=== PATIENT | female | born 1940 | race Caucasian/White ===

== ENCOUNTER → 2020-11-26 16:02 | Outpatient (CLI) | payer MEDICARE, BC, SELFPAY ==
--- NOTE | ~2020-11-26 | XR_ITS ---
EXAMINATION: XR chest 2V DATE: 11/26/2020 16:25 INDICATION: Shortness of breath. TECHNIQUE: Frontal and lateral views of the chest were obtained. COMPARISON: Chest 2 views 03/19/2015 FINDINGS: The chest demonstrates clear lungs without pneumonia, pleural effusion, or pneumothorax. Th e heart size is normal. IMPRESSION: 1. No acute cardiopulmonary disease. Reviewed, dictated and finalized at location A.
== END ==
PROVIDERS: PCP Family Medicine; Visit Provider Physician Assistant
DX: R06.02 Shortness of breath (principal)
CPT/HCPCS: 71046

== ENCOUNTER 2021-02-13 16:00 | Outpatient (CLI) | payer MEDICARE, BC, SELFPAY ==
--- NOTE | 2021-02-13 16:13 | ECG_ITS ---
Measurements Intervals [place] Rate: 68 P: 87 [place]: 152 QRS: 93 QRSD: 124 T: -27 QT: 441 QTc: 472 Interpretive Statements SINUS RHYTHM RIGHT AXIS DEVIATION RIGHT BUNDLE BRANCH BLOCK CANNOT RULE OUT SEPTAL INFARCT, AGE INDETERMINATE BASELINE WANDER- I, II, AVR, V5-V6 ABNORMAL ECG Electronically Signed On 02-13-2021 19:43:13 CDT by Félix Perez D.O.
== END 2021-02-13 16:01 | disposition home or self-care (01) ==
PROVIDERS: PCP Family Medicine; Visit Provider Family Medicine
DX: I25.10 Atherosclerotic heart disease of native coronary artery without angina pectoris (principal); I48.0 Paroxysmal atrial fibrillation; I45.10 Unspecified right bundle-branch block
CPT/HCPCS: 93005

== ENCOUNTER 2025-06-07 16:05 | Emergency (ER) | payer MEDICARE, BC, SELFPAY ==
--- OUTSIDE RECORDS SUMMARY | 2009-10-01 07:45 | XMS_ITS | Continuity of Care Document ---
Author Organization [facility] Address [address] [place] [address] Phone Care Team Providers Care Occup Therapist Name Role Phone Deejay Weldon Unavailable Unavailable Procedures Procedure Date Office/outpatient Visit, Est Dilated Retinal Exam W Interpretation Nd Office/outpatient Visit, Est Optic Nerve Head Eval Dilated Retinal Exam W Interpretation Nd No Script Fundus Photography W/ Report Visual Field Examination-Professional Se Visual Field Examination(s) Eye Exam Established Pt Refraction Refraction Post-op Follow-up Visit Post-op Follow-up Visit Remove Cataract, Insert Lens PreSurg Dilated Fundus Eval Performed Au PreSurg Measurements/IOL Calc Performed And Docum Post-op Follow-up Visit Echo Exam Of Eye-Professional 7 Post-op Follow-up Visit Remove Cataract, Insert Lens PreSurg Dilated Fundus Eval Performed Ju PreSurg Measurements/IOL Calc Performed And Docum Eye Exam Established Pt Echo Exam Of Eye Advance Directives Directive Yes / No Effective Date File Name No Information Encounters Encounter Description Practice Location Reason(s) For Visit Diagnoses Date Provider Providers Copied on Encounter Office/outpat ient Visit, Est [facility], [address], [place], [id number], tel:[phone] [facility] No Information Mar-0 8-201 0 Doisy Edward. [facility] [address], [place], [place], [facility], . tel:[phone] Office/outpat ient Visit, Est [facility], [address] [place] [address] [address], [place], [place], [id number], tel:[phone] [facility] No Information Mar-1 6-200 9 Krishnasamy Silas. [address] [place], [place] [address]ate [address], [place], [facility], [place]. tel:[phone] Referring Provider: Silas cordova, [address] [place], [place] [address]ate [address], [place], [facility]. tel:[phone] [facility], [address] [place] [address] [address], [place], [place], [address], tel:[phone] [facility] No Information Sep-0 2-200 8 Krishnasamy Silas. [address] [place], [place] [address]ate [place], [place], [facility], [place]. tel:[phone] Referring Provider: Silas cordova, [address] [place], [place] [address]ate [address], [place], [facility]. tel:[phone] [facility], [address] [place] [address] [address], [place], [place], [address], tel:[phone] [facility] No Information Aug-2 9-200 8 Krishnasamy Silas. [address] [place], [place] [address]ate [facility] [address], [place], [facility], [place]. tel:[phone] Referring Provider: Silas cordova, [address] [place], [place] [address]ate [address], [place], [facility]. tel:[phone] [facility], [address] [place] [address] [address], [place], [place], [address], [place] tel:[phone] [facility] No Information 2-200 8 Rachael Rosen. [facility] [address], [place], [facility], [place]. tel:[phone] [facility], [address], [place], [place], [address], [place] tel:[phone] [facility] No Information 3 1-200 7 Shiraz Villalba. [facility] , [address], [place], [facility], [place]. tel:[phone] Referring Provider: Deepak Grayson, [facility] [address], [place], [facility]. tel:[phone] [facility], [address] [place] [address] [address], [place], [place], [address], [place] tel:[phone] [facility] No Information 1 5-200 7 Dobson LUDMILA Sotelo. [facility] , [address], [place], [facility], [place]. tel:[phone] Referring Provider: Deejay Grayson, [facility] [address], [place], [facility]. tel:[phone] [facility], [address], [place], [place], [address], [place] tel:[phone] [facility] No Information 1 4-200 7 Shiraz Villalba. [facility] [address], [place], [facility], [place]. tel:[phone] [facility], [address], [place], [place], [address], [place] tel:[phone] [facility] No Information 0 6-200 7 Shiraz Villalba. [facility] [address], [place], [facility], . tel:[phone] Referring Provider: Deejay Grayson [facility] [address]oon [address], [place], [facility]. tel:[phone] [facility], [address] [place] [address] [address], [place], [place], [address], tel:[phone] [facility] No Information 0200 7 Shiraz Villalba. [address] [place], [place] [address]ate Yoon Braxton, [address], [place], [facility], [place]. tel:[phone] [facility], [address] [place] [address] [address], [place], [place], [address], tel:[phone] [facility] No Information 9200 7 Shiraz Villalba. [address] [place] [address] [address], [address], [place], [facility], . tel:[phone] [facility], [address] [place] [address] [address], [place], [place], [address], [place] tel:[phone] [facility] [place] No Information 1 7 Shiraz Villalba. [address] [place] [address] [address], [address], [place], [facility], . tel:[phone] Referring Provider: Deejay Grayson [facility] [address]oon [address], [place], [facility]. tel:[phone] Family History Family Member Type Diagnosis Age At Onset No Information Payers Payer name Insurance type Covered republican ID Authoriza tion(s) Medicare RR CI [id number] [facility] 09 [id number] Social History Type Description Quantity Date Captured Comments Sex Female Smoking Status No Information Chief Complaint And Reason For Visit No Information Reason For Referral Reason For Referral No Information History Of Present Illness Encounter Date Complaint History Of Prese nt Illness No Information Functional Status Date Functional Assessmen t No Information Instructions Date Instruction Additional Infor mation No Information Assessments Type Assessment Date No Information Patient Care Teams Name Effective Dates (start - stop) Status Members No Information
--- OUTSIDE RECORDS SUMMARY | 2009-10-01 07:45 | XMS_ITS | Continuity of Care Document ---
Author Organization [facility] Address [address] [place] [address] Phone Care Team Providers Care Storage Solutions Architect Name Role Phone Deejay Weldon Unavailable Unavailable Procedures Procedure Date Office/outpatient Visit, Est Dilated Retinal Exam W Interpretation Or Office/outpatient Visit, Est Optic Nerve Head Eval Dilated Retinal Exam W Interpretation Or No Script Fundus Photography W/ Report Visual [...] Copied on Encounter Office/outpat ient Visit, Est [facility], [address], [place], [address], tel:[phone] [facility] No Information Mar-0 8-201 [address] [facility] [address], [address], [place], [place], [facility], . tel:[phone] Office/outpat ient Visit, Est [facility], [address] [place] [address] [address], [place], [place], [address], tel:[phone] [facility] No Information Mar-1 6-200 9 Krishnasamy Silas. [address] [place], [place] [address]ate [address], [place], [facility], [place]. tel:[phone] Referring Provider: Silas cordova, [address] [place], [place] [address]ate [address], [place], [facility]. tel:[phone] [facility], [address] [place] [address] [address], [place], [place], [address], tel:[phone] [facility] No Information Sep-0 2-200 8 Krishnasamy Silas. [address] [place], [place] [address]ate [address], [place], [facility], [place]. tel:[phone] Referring Provider: Silas cordova, [address] [place], [place] [address] [address], [place], [facility]. tel:[phone] [facility], [address] [place] [address] [address], [place], [place], [address], tel:[phone] [facility] No Information Aug-2 9-200 8 Krishnasamy Silas. [address] [place], [place] [address]ate [facility] [address], [place], [facility], [place]. tel:[phone] Referring Provider: Silas cordova, [address] [place], [place] [address] [address], [place], [facility]. tel:[phone] [facility], [address] [place] [address] [address], [place], [place], [address], [place] tel:[phone] [facility] No Information 2-200 [address] [facility] [address], [place], [facility], [place]. tel:[phone] [facility], [address], [place], [place], [address], [place] tel:[phone] [facility] No Information 3 1-200 [address]az [address]al[address] [facility] , [address], [place], [facility], [place]. tel:[phone] Referring Provider: Deepak Grayson, [facility] [address], [place], [facility]. tel:[phone] [facility], [address] [place] [address] [address], [place], [place], [address], [place] tel:[phone] [facility] No Information 1 5-200 7 Dobson LUDMILA Sotelo. [facility] , [address], [place], [facility], [place]. tel:[phone] Referring Provider: Deejay Grayson, [facility] [address], [place], [facility]. tel:[phone] [facility], [address], [place], [place], [address], [place] tel:[phone] [facility] No Information 1 4-200 [address] Shiraz [address]al[address]. [facility] [address], [place], [facility], [place]. tel:[phone] [facility], [address], [place], [place], [address], [place] tel:[phone] [facility] No Information 0 6-200 [address] Shir[address] Villalba. [facility] [address], [address], [place], [facility], . tel:[phone] Referring Provider: Deejay Grayson [facility] Center[facility] [address], [place], [facility]. tel:[phone] [facility], [address] [place] [address] [address], [place], [place], [address], tel:[phone] [facility] No Information 0200 7 Shiraz Villalba. [address] [place], [place] [address] Yoon Braxton, [address], [place], [facility], [place]. tel:[phone] [facility], [address] [place] [address] [address], [place], [place], [address], tel:[phone] [facility] No Information 9200 7 Shiraz Villalba. [address] [place] [address] [address], [address], [place], [facility], . tel:[phone] [facility], [address] [place] [address] [address], [place], [place], [address], [place] tel:[phone] [facility] No Information 1 7 Shiraz Villalba. [address] [place] [address] [address], [address], [place], [facility], . tel:[phone] Referring Provider: Deejay Grayson [facility] Center[facility] [address], [place], [facility]. tel:[phone] Family History Family Member Type Diagnosis Age At Onset No Information Payers Payer name Insurance type Covered alliance party ID Authoriza tion(s) Medicare RR CI [id number] [facility] 09 [id number] Social History Type Description Quantity Date Captured [...]
[2025-06-07] VITALS (25 sets, daily range): BP systolic 108–161; BP diastolic 71–137; PULSE 72–133; RESP 14–36; TEMP 36.4; O2SAT 88–99
--- NOTE | ~2025-06-07 | XR_ITS ---
EXAM/PROCEDURE: XR chest 1V portable HISTORY: SOB. Rapid heart rate COMPARISON: 2020 TECHNIQUE: AP view(s) of the chest. FINDINGS: LUNGS: There is pulmonary vascular congestion. PLEURAL SPACES: Clear. No evidence of fluid or pneumothorax. HEART/ MEDIASTINUM: Enlarged SOFT TISSUES: No significant findings. BONES: No acute osseous abnormality. IMPRESSION: Cardiomegaly and pulmonary vascular congestion Reviewed, dictated and finalized at location A. RVISOR SAMPLE
--- NOTE | ~2025-06-07 | CT_ITS ---
CTA chest PE abdomen pel HISTORY:hypoxia, sob, tachycardia . COMPARISON: None. TECHNIQUE: Following the noncontrasted general maintenance engineer, axial images of the thorax were obtained following infusion of 100 cc of Isovue 370. Post-processing on an independent workstation was performed to reconstruct MIP images for evaluation of the thoracic vasculature. FINDINGS: Acute pulmonary infiltrate in the main pulmonary arteries bilaterally extending into the segmental branches. There is right heart strain noted. The lung parenchyma is clear. No pleural effusion or pneumothorax is noted. There is no axillary, mediastinal or hilar adenopathy. Limited evaluation of the upper abdomen demonstrates no gross abnormalities. Review of bone windows demonstrates no osteoblastic or lytic lesions. IMPRESSION: Large pulmonary emboli in the main pulmonary arteries bilaterally extending into the segmental branches. There are right heart strain noted. No acute lung findings. CTA chest PE abdomen pel INDICATION:hypoxia, sob, tachycardia . COMPARISON: None. TECHNIQUE: Axial images of the abdomen and pelvis were obtained following infusion of 100 mL Isovue 370. Dose optimization technique was utilized. FINDINGS: The lung bases are clear. The liver parenchyma is unremarkable. No intrahepatic mass or ductal dilatation is evident. Gallbladder surgically absent. The pancreas and spleen are normal in appearance. The adrenal glands are symmetric in size. The kidneys demonstrate symmetric uptake and excretion of contrast. No cystic mass is evident. There is no solid mass. There is no hydronephrosis. Evaluation of the stomach and bowel loops are limited due to lack of oral contrast. There are no bowel obstruction or acute appendicitis. The bladder and rectum are normal. No free intraperitoneal fluid or air is evident. There is no significant retroperitoneal lymphadenopathy. The aorta, visceral vessels and renal arteries demonstrate normal caliber and patency. The lower thoracic and lumbar vertebrae are in normal alignment. IMPRESSION: No acute abnormality is noted in the abdomen and pelvis. All CT scans at this facility are performed using low dose modulation techniques as appropriate to perform exam including the following: automated exposure control; use of iterative reconstruction technique; adjustment of the mA and/or kV according to patient size (this includes techniques or standardized protocols for targeted exams where dose is matched to indication/reason for exam). Reviewed, dictated and finalized at location S. UNICATIONS PROFESSOR IMPRESSION: Large pulmonary emboli in the main pulmonary arteries bilaterally extending int o the segmental branches. There are right heart strain noted. No acute lung findings. CTA chest PE abdomen pel INDICATION:hypoxia, sob, tachycardia . COMPARISON: None. TECHNIQUE: Axial images of the abdomen and pelvis were obtained following infu marcia of 100 mL Isovue 370. Dose optimization technique was utilized. FINDINGS: The lung bases are clear. The liver parenchyma is unremarkable. No intrahepatic mass or ductal dilatation is evident. Gallbladder surgically absent. The pancreas and spleen are normal in appearance. The adrenal glands are symmetric in size. The kidneys demonstrate symmetric uptake and excretion of contrast. No cystic m ass is evident. There is no solid mass. There is no hydronephrosis. Evaluation of the stomach and bowel loops are limited due to lack of oral contr ast. There are no bowel obstruction or acute appendicitis. The bladder and rectum are normal. No free intraperitoneal fluid or air is evid ent. There is no significant retroperitoneal lymphadenopathy. The aorta, visceral vessels and renal arteries demonstrate normal caliber and p atency. The lower thoracic and lumbar vertebrae are in normal alignment. IMPRESSION: No acute abnormality is noted in the abdomen and pelvis. All CT scans at this facility are performed using low dose modulation techniqu es as appropriate to perform exam including the following: automated exposure c ontrol; use of iterative reconstruction technique; adjustment of the mA and/or kV according to patient size (this includes techniques or standardized protocol s for targeted exams where dose is matched to indication/reason for exam).
--- OUTSIDE RECORDS SUMMARY | 2025-06-07 16:23 | XMS_ITS | Encounter Summary ---
Author Organization [facility] Address [address] [place] [address] Care Team Providers Care Combiner Operator Name Role Phone Wilma Dockery MD Primary Care Provider [phone] Encounter Details Date Type Department Care Team ([facility] Contact Info) Description 03/26/2017 Orders Only [facility] Health Information Management [address] [place] [address] Scanning, Provider Social History Tobacco Use Types Packs/Day Years Used Date Smoking Tobacco: Former Smokeless Tobacco: Never Alcohol Use Standard Drinks/Week Comments No 0 (1 standard drink = 0.6 oz pur e alcohol) Comments Unknown Sex and Gender Information Value Date Recorded Sex Assigned at Not on file Legal Sex 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 Gender Identity Not on file Sexual Orientation Not on file documented as of this encounter Plan of Treatment Not on file documented as of this encounter Procedures Procedure Name Priority Date/Time Associated Diagnosis Comments SCAN - RADIOLOGY/IMAGING 03/26/2017 documented in this encounter Results * SCAN - RADIOLOGY/IMAGING (03/26/2017) Anatomical Region Laterality Modality Other us Provider Scanning Final Result documented in this encounter Visit Diagnoses Not on filedocumented in this encounter Care Teams Combiner Operator Relationship Specialty Start Date End Date Wilma Dockery MD PCP - General 10/24/16 documented as of this encounter
--- OUTSIDE RECORDS SUMMARY | 2025-06-07 16:23 | XMS_ITS | Clinical Summary ---
Author Organization [facility] [address] Address [address] [place] [address] Care Team Providers Care Dredge Captain Name Role Phone Wilma Dockery MD Primary Care Provider [phone] Allergies No known active allergies Medications metFORMIN (GLUCOPHAGE) 500 mg tablet take 1 tablet (500MG) by oral route 2 times every day with morning and evening meals 0 10/04/2012 Active simvastatin (ZOCOR) 20 mg tablet take 1 tablet by oral route every day at bedtime 0 0 05/07/2015 Active lisinopril (PRINIVIL,ZESTRI L) 40 mg tablet take 1 tablet by oral route every day 0 0 05/07/2015 Active cholecalciferol (VITAMIN D-3) 25 mcg (1,000 unit) tablet Take 1 tablet (1,000 Units total) by mouth daily Active brimonidine-rocio loL (COMBIGAN) 0.2-0.5 % ophthalmic solution 1 drop 2 (two) times a day 05/15/2023 Active latanoprost (XALATAN) 0.005 % ophthalmic solution 05/29/2023 Active Xarelto 20 mg tablet 08/20/2023 Active isosorbide mononitrate ER (IMDUR) 30 mg 24 hr tablet TAKE 1 TABLET DAILY 90 tablet 3 06/15/2024 Active metoprolol XL (TOPROL-XL) 25 mg extended release tablet TAKE 1 TABLET DAILY 90 tablet 3 06/15/2024 Active Active Problems Problem Noted Date Diagnosed Date Angina pectoris, unspecified 07/09/2023 Coronary artery disease invo lving chilkoot coronary artery of chilkoot heart without angina pectoris 03/24/2017 S/P coronary artery stent placement 03/24/2017 Paroxysmal atrial fibrillation 03/24/2017 Surgical History Surgery Date Site/Laterality Comments CORONARY ANGIOPLASTY Medical History Medical History Date Comments Atrial fibrillation (HCC) Coronary artery disease Hypertension Family History Medical History Relation Name Comments Heart disease Brother 1 Other Brother 2 Unknown; Cause of : Unknown Heart disease Father Other Father Unknown; Cause of : Unknown Other Mother Unknown; Cause of : Unknown Relation Name Status Comments Brother 1 (Age 60) Brother 2 Father (Age 59) Mother Social History Tobacco Use Types Packs/Day Years Used Date Smoking Tobacco: Former Smokeless Tobacco: Never Tobacco Cessation:Counseling Given: Not Answered Alcohol Use Standard Drinks/Week Comments No 0 (1 standard drink = 0.6 oz pur e alcohol) Comments Unknown Sex and Gender Information Value Date Recorded Sex Assigned at Not on file Legal Sex 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 Gender Identity Not on file Sexual Orientation Not on file Last Filed Vital Signs Vital Sign Reading Time Taken Comments Blood Pressure 150/60 10/17/2024 2:00 PM CDT Pulse 69 10/17/2024 2:00 PM CDT Temperature - - Respiratory Rate 14 03/24/2017 11:35 AM CDT Oxygen Saturation 86% 10/17/2024 2:00 PM CDT Inhaled Oxygen Concentration - - Weight 52.6 kg (116 lb) 10/17/2024 2:00 PM CDT Height 154.9 cm (5' 1) 10/17/2024 2:00 PM CDT Body Mass Index 21.92 10/17/2024 2:00 PM CDT Plan of Treatment Health Maintenance Due Date Last Done Comments Depression Screening 1938 Fall Risk Assessment 1938 Osteoporosis Screening-Bone Density Scan 1938 DTaP/Tdap/Td Vaccine (1 - Tdap) 1949 Hepatitis B Screening 1956 Well Visit 65+ 2003 Zoster Vaccine (3 of 3) 01/23/2021 11/28/2020, 11/22 Influenza Vaccine (#1) 2025 9, 03/31/2018, 05/09/2017, Additional history exists Pneumococcal vaccine 65+ Completed 04/18/2020, 08/27 Insurance MEDICARE RAILROAD MEDICARE RAILFORMERLY [facility] Care Teams Dredge Captain Relationship Specialty Start Date End Date Wilma Dockery MD PCP - General 10/24/16
--- NOTE | 2025-06-07 17:44 | ECG_ITS ---
Test Date: 2025-06-07 18:15:31 Measurements Intervals [place] Rate: 114 P: 0 TN: 0 QRS: 177 QRSD: 121 T: -60 QT: 376 QTc: 518 Interpretive Statements ATRIAL FIBRILLATION WITH RAPID VENTRICULAR RESPONSE RIGHT BUNDLE BRANCH BLOCK T-WAVE ABNORMALITY, CONSIDER ISCHEMIA Electronically Signed On 06-07-2025 22:33:11 HOT WOUND SPRING PRODUCTION SUPERVISOR by Josh Wright D.O
--- NOTE | 2025-06-07 17:44 | ED_ITS ---
HPI - SOB/Dyspnea General Chief Complaint: Shortness of Breath/Dyspnea <Brigette Morales PA-C - Last Filed: 06/08/25 09:24> Stated Complaint: sob <RONA Villegas Last Filed: 06/08/25 09:24> Time Seen by Provider: 06/07/25 17:44 <RONA Villegas Last Filed: 06/08/25 09:24> Focused HPI: This is a 84 year old female that presents to the ER for shortness of breath. Ongoing for years. Worsening over the last month. Denies chest pain. Reports back pain. Denies lower extremity edema. GENERAL: Elderly, well-nourished, and in no acute distress. HEAD: Normocephalic, atraumatic. CHEST: Clear to auscultation. ?No respiratory distress. HEART: Regular rate and rhythm.? NEURO: ?Alert and oriented x3. Patient screened in triage and initial orders placed.? ?Additional care and disposition to be based upon?diagnostic testing and treatment. <RONA Villegas Last Filed: 06/08/25 09:24> Focused HPI: This is a 84 year old female that presents to the ER for shortness of breath. Ongoing for years. Worsening over the last month. Denies chest pain. Reports back pain. Denies lower extremity edema. GENERAL: Elderly, well-nourished, and in no acute distress. HEAD: Normocephalic, atraumatic. CHEST: Clear to auscultation. ?No respiratory distress. HEART: Regular rate and rhythm.? NEURO: ?Alert and oriented x3. Patient screened in triage and initial orders placed.? ?Additional care and disposition to be based upon?diagnostic testing and treatment. <Soniya Ibarra PA-C - Last Filed: 06/08/25 00:41> Source: patient <RONA Del Real Last Filed: 06/08/25 00:41> Mode of arrival: ambulatory <RONA Del Real Last Filed: 06/08/25 00:41> Limitations: no limitations <RONA Del Real Last Filed: 06/08/25 00:41> History of Present Illness HPI Narrative: Agree with above HPI. Reports today she had difficulty performing simple tasks throughout her house due to shortness of breath. States she had to stop and rest several times. Her grandson recommended she come to the ED. Denies chest pain. Denies consistent cough. Denies fevers. Admits to intermittent pain in her lower legs gen for the past 1 month. History of paroxysmal AFib, on metoprolol and Xarelto. Reports compliance with medications, but did not take normal medications this morning. <Soniya Ibarra PA-C - Last Filed: 06/08/25 00:41> Related Data Home Medications: Home Medications ?Medication ?Instructions ?Recorded ?Confirmed ?Last Taken ?Type cholecalciferol (vitamin D3) 25 25 mcg PO DAILY 01/23/25 Unknown History mcg (1,000 unit) capsule metoprolol succinate 25 mg 25 mg PO QAM 01/04/2501/23 Unknown History tablet,extended release 24 hr <Brigette Morales PA-C - Last Filed: 06/08/25 09:24> Allergies/Adverse Reactions: Allergies Allergy/AdvReac Type Severity Reaction Status Date / Time alendronate sodium (From AdvReac Severe Back Pain Verified 01/31/25 14:37 Fosamax) sotalol AdvReac Severe SOB Verified 01/31/25 14:37 <Brigette Morales PA-C - Last Filed: 06/08/25 09:24> Review of Systems 2 Review of Systems: All systems reviewed & are unremarkable except as noted in HPI. <Soniya Ibarra PA-C - Last Filed: 06/08/25 00:41> All systems reviewed & are unremarkable except as noted in HPI and below < Soniya Ibarra PA-C - Last Filed: 06/08/25 00:41> [facility] Past Medical History Medical History: Medical History Colon cancer screening declined FH: total knee replacement Atherosclerotic heart disease of [place] coronary artery without angina pectoris Essential (primary) hypertension H/O TIA (transient ischemic attack) and stroke Occlusion and stenosis of unspecified carotid artery Paroxysmal atrial fibrillation Pure hypercholesterolemia Type 2 diabetes mellitus without complication, without long-term current use of insulin Vitamin D deficiency <Brigette Morales PA-C - Last Filed: 06/08/25 09:24> Surgical History Surgical History: Surgical History Hx of cataract extraction History of partial hysterectomy <Brigette Morales PA-C - Last Filed: 06/08/25 09:24> Family History Family History: Family History Mother Family history of diabetes mellitus in first degree relative, Onset Age: 59 Family history of heart disease in male family member before age 55, Onset Age: 59 Father Family history of heart disease in male family member before age 55, Onset Age: 59 <Brigette Morales PA-C - Last Filed: 06/08/25 09:24> Social History Social History: Social History Social History: She lives alone. Grandson lives next store. Son,Nimesh Lozada, is her POA. She does have a living will. Smoking packs per day: 1 Smoking cigarettes per day: 20.0 Years smoked: 20 Smoking pack-years: 20.00 Smoking status: Former smoker Tobacco type: cigarettes Second hand tobacco smoke exposure: Yes Smoking end date: 07/27/89 Alcohol intake: never Substance use: never Substance use type: does not use Lack of Transportation: No Lack of Food: Never True Current Housing: I Have Housing Concerned About Future Housing: No Difficulty Paying Gas/Electric Bills: No Difficulty Paying for Meds: No Currently Unemployed: No Education: High School Diploma/GED Difficulty w/ Childcare or Family Care: No Living arrangements: alone Occupation/Education: retired Gender identity (if verbalized by the patient): Female <Brigette Morales PA-C - Last Filed: 06/08/25 09:24> Exam 2 Narrative: GENERAL: Elderly, frail/thin, non-toxic, in no acute distress. HEAD: Normocephalic, atraumatic. RESPIRATORY: Airway patent, respirations nonlabored. Decreased lung sounds in bases bilaterally, no significant focal rhonchi. No wheezing. CARDIOVASCULAR: Tachycardic with irregular rhythm without murmurs, rubs, or gallops. Peripheral pulses intact. ABDOMINAL: Soft, nontender, nondistended. Normoactive BS. MUSCULOSKELETAL: Moves all extremities. No gross deformities. No significant peripheral edema. No calf tenderness. SKIN: Warm, dry, normal color. NEURO: A&O X3. Speech clear. Cranial nerves II-XII grossly intact. Steady gait. No ataxic movements. PSYCHIATRIC: Appropriate mood and affect. Normal interaction. <Soniya Ibarra PA-C - Last Filed: 06/08/25 00:41> Course GOLD BEATER/PA Physician Supervision Aware this patient was being admitted. I was available for consultation while patient was in the ED but did not personally examine them and was not directly involved in their care. <Viridiana Horton MD - Last Filed: 06/11/25 02:26> Vital Signs Vital signs: Vital Signs Temperature 97.6 F 06/07/25 16:09 Pulse Rate 72 06/07/25 16:09 Respiratory Rate 20 06/07/25 16:09 Blood Pressure 117/71 06/07/25 16:09 Pulse Oximetry 95 06/07/25 16:09 Oxygen Delivery Room Air 06/07/25 16:09 Temperature 97.6 F 06/07/25 16:09 Pulse Rate 131 H 06/08/25 00:45 Respiratory Rate 27 H 06/08/25 00:45 Blood Pressure 129/102 H 06/08/25 00:30 Pulse Oximetry 99 06/08/25 00:08 Oxygen Delivery Nasal Cannula 06/07/25 18:30 Oxygen Flow Rate 3 06/07/25 18:30 <Brigette Morales PA-C - Last Filed: 06/08/25 09:24> Vital Signs Temperature 97.6 F 06/07/25 16:09 Pulse Rate 72 06/07/25 16:09 Respiratory Rate 20 06/07/25 16:09 Blood Pressure 117/71 06/07/25 16:09 Pulse Oximetry 95 06/07/25 16:09 Oxygen Delivery Room Air 06/07/25 16:09 Temperature 97.6 F 06/07/25 16:09 Pulse Rate 131 H 06/08/25 00:45 Respiratory Rate 27 H 06/08/25 00:45 Blood Pressure 129/102 H 06/08/25 00:30 Pulse Oximetry 99 06/08/25 00:08 Oxygen Delivery Nasal Cannula 06/07/25 18:30 Oxygen Flow Rate 3 06/07/25 18:30 <Soniya Ibarra PA-C - Last Filed: 06/08/25 00:41> Vital Signs Temperature 97.6 F 06/07/25 16:09 Pulse Rate 72 06/07/25 16:09 Respiratory Rate 20 06/07/25 16:09 Blood Pressure 117/71 06/07/25 16:09 Pulse Oximetry 95 06/07/25 16:09 Oxygen Delivery Room Air 06/07/25 16:09 Temperature 97.6 F 06/07/25 16:09 Pulse Rate 131 H 06/08/25 00:45 Respiratory Rate 27 H 06/08/25 00:45 Blood Pressure 129/102 H 06/08/25 00:30 Pulse Oximetry 99 06/08/25 00:08 Oxygen Delivery Nasal Cannula 06/07/25 18:30 Oxygen Flow Rate 3 06/07/25 18:30 <Viridiana Horton MD - Last Filed: 06/11/25 02:26> MDM - SOB/Dyspnea MDM Narrative Medical decision making narrative: Patient presented to ED with shortness of breath, ongoing for least the last 1 month, worsening today, worse with exertion. Had difficulty performing simple tasks today. Initial oxygen saturation upon arrival to the ED was 95% on room air, however upon patient walking back to the ED room, patient was noted to be hypoxic down to mid 80s on room air. She was placed on 2 L nasal cannula with normalization of oxygen saturation. Patient found to be in AFib with RVR upon arrival. Rates 110s-130s. She does have hx of pAFIB, on xarelto, metoprolol, sees Dr. Arce. Does report that she missed her dose of metoprolol today. Believe she may have missed her Xarelto last night as well. According to her home med container, she may have missed several doses. Given oral metoprolol in the ED as well as IV push 5 mg Lopressor. No significant concerning ST changes on EKG. She is denying chest pain at this time. HR did improve to upper 90s, low 100s after IV lopressor. Will continue to monitor. BP remaining stable Baseline troponin resulted elevated at 0.066. Will continue to trend. BNP elevated to nearly 10,000. Chest x-ray with cardiomegaly and pulmonary vascular congestion. Patient denies previous history of CHF. No echo on file to review. No current diuretic use. Laboratory studies without leukocytosis. Stable H& H. Plt slightly low at 106. CMP with hyperkalemia at 5.7. JUANPABLO with Private Duty Nurse 1.63. No recent records to compare to, but baseline more around 1. BG 274. liver enzymes are abnormal. AST almost 300, ALT almost 200. Alk-phos 146. Normal bilirubin. Lipase mildly elevated to 438. Patient denies any abdominal discomfort at this time. UA with positive nitrate, 2+ leuk esterase, greater than 100 RBC, 11-20 WBC. Sent for culture. Given dose of Rocephin in the ED. Blood cx obtained. Viral swabs negative. Patient was given hyperK treatment, including calcium gluconate, insulin, dextrose, lokelma, Lasix 20mg IV. Repeat BMP approx 1 hr later - K 4.7. 3 hr trop 0.127. CTA of chest/abdomen / pelvis obtained: Large pulmonary emboli in the main pulmonary arteries bilaterally extending into the segmental branches. There are right heart strain noted. No intra-abdominal abnormalities. Discussed lab and imaging findings extensively with patient and family. Discussed starting IV heparin. They are in agreement with plan. Given presence of right heart strain and size of PEs, will require transfer to tertiary center for higher level of care, possible IR versus vascular capabilities. Family is in agreement with plan/transfer. Would prefer to go to [facility]. Discussed case with Dr. Elizabeth, ICU @ [facility], accepted patient for transfer. Awaiting bed placement/transportation. Patient/family updated on plan. Patient remains on 2 L nasal cannula but relatively stable at this time. <Soniya Ibarra PA-C - Last Filed: 06/08/25 00:41> Medical Records Attestation: I reviewed the patient's medical records. <Soniya Ibarra PA-C - Last Filed: 06/08/25 00:41> Lab Data Attestation: I reviewed the patient's lab results. <Soniya Ibarra PA-C - Last Filed: 06/08/25 00:41> Result diagrams: 06/07/25 19:05 06/07/25 21:55 <Brigette Morales PA-C - Last Filed: 06/08/25 09:24> Labs: Lab Results 06/07/25 06/07/25 06/07/25 Range/Units 19:05 19:13 19:59 WBC 8.0 (4.5-10.0) K/mm3 RBC 5.03 (4.2-5.4) M/mm3 Hgb 15.2 H (12.0-15.0) g/dL Hct 48.9 H (37.0-47.0) % MCV 97.2 (80-100) fl MCH 30.2 (26-34) pg MCHC 31.1 L (32-36) g/dl RDW 14.9 H (11.5-14.5) % Plt Count 106 L (150-375) k/mm3 MPV 10.1 (7.4-10.4) fl Immature Gran % (Auto) 0.9 H (0-0.5) % Neut % (Auto) 83.5 H (45.5-73.1) % Lymph % (Auto) 9.9 L (18.3-44.2) % [place] % (Auto) 5.2 (2.6-8.5) % Eos % (Auto) 0.1 (0-4.4) % Baso % (Auto) 0.4 (0.2-1.2) % Lymph # (Auto) 0.79 L (0.9-3.2) K/mm3 [place] # (Auto) 0.4 (0.1-0.6) K/mm3 Eos # (Auto) 0.0 (0-0.3) K/mm3 Baso # (Auto) 0.0 (0.0-0.1) K/mm3 Abs Immat Gran (auto) 0.07 H (0.00-0.031) K/mm3 Absolute Neuts (auto) 6.7 (1.3-6.7) K/mm3 Absolute Nucleated RBC 0.020 H (0.0-0.012) K/mm3 Nucleated RBC % 0.2 (0.0-0.2) % % Immature Plt Fraction 2.8 (0.9-11.2) % PT 18.0 H (11.1-14.7) Seconds INR 1.5 APTT 36.9 H (22.3-36.8) Seconds Sodium 138 (137-145) mmol/L Potassium 5.7 H (3.4-5.0) mmol/L Chloride 100 (98-107) mmol/L Carbon Dioxide 29 (22-30) mmol/L Anion Gap 9 (4-12) mmol/L BUN 50 H (7-17) mg/dL Creatinine 1.63 H (0.7-1.0) mg/dL Estim Creat Clear Calc 17 ml/min Estimated GFR 30 L (59 - ) Glucose 274 H (65-110) mg/dL POC Capillary Glucose (65-105) mg/dl Calcium 9.2 (8.4-10.2) mg/dL Total Bilirubin 1.3 (0.2-1.3) mg/dL AST 299 H (14-36) U/L ALT 187 H (6-35) U/L Alkaline Phosphatase 146 H (38-126) U/L Troponin I 0.066 H* (0.000-0.034) ng/mL NT-Pro-B Natriuret Pep 9970 H (19.9-100) pg/mL Total Protein 7.4 (6.3-8.2) g/dL Albumin 4.1 (3.5-5.1) g/dL Lipase 438 H (23-300) U/L Urine Color Brown H (Yellow) Urine Appearance Turbid H (Clear) Urine pH 5.0 (5.0-9.0) Ur Specific [place] 1.023 (1.001-1.035) Urine Protein 2+ H (Negative) mg/dL Urine Glucose (UA) Negative (Negative) mg/dL Urine Ketones Negative (Negative) mg/dL Ur Blood (Man) 2+ H (Negative) Urine Nitrate Positive H (Negative) Urine Bilirubin 2+ H (Negative) Urine Urobilinogen 1.0 (<2.0) mg/dL Leukocyte Esterase Rfl 2+ H (Negative) TEE/UL Urine RBC >100 H (0-2) /hpf Urine WBC 11-20 H (0-3) /hpf Ur Squamous Epith Cells Many H (Few) /hpf Urine Bacteria Rare /hpf Urine Casts >20 Hyaline Casts Present (None) /lpf Influenza A (RT-PCR) Negative (Negative) Influenza B (RT-PCR) Negative (Negative) RSV (RT-PCR) Negative (Negative) SARS-CoV-2 RNA (RT-PCR) Negative (Negative) 06/07/25 06/08/25 Range/Units 21:55 00:28 WBC (4.5-10.0) K/mm3 RBC (4.2-5.4) M/mm3 Hgb (12.0-15.0) g/dL Hct (37.0-47.0) % MCV (80-100) fl MCH (26-34) pg MCHC (32-36) g/dl RDW (11.5-14.5) % Plt Count (150-375) k/mm3 MPV (7.4-10.4) fl Immature Gran % (Auto) (0-0.5) % Neut % (Auto) (45.5-73.1) % Lymph % (Auto) (18.3-44.2) % [place] % (Auto) (2.6-8.5) % Eos % (Auto) (0-4.4) % Baso % (Auto) (0.2-1.2) % Lymph # (Auto) (0.9-3.2) K/mm3 [place] # (Auto) (0.1-0.6) K/mm3 Eos # (Auto) (0-0.3) K/mm3 Baso # (Auto) (0.0-0.1) K/mm3 Abs Immat Gran (auto) (0.00-0.031) K/mm3 Absolute Neuts (auto) (1.3-6.7) K/mm3 Absolute Nucleated RBC (0.0-0.012) K/mm3 Nucleated RBC % (0.0-0.2) % % Immature Plt Fraction (0.9-11.2) % PT (11.1-14.7) Seconds INR APTT (22.3-36.8) Seconds Sodium 137 (137-145) mmol/L Potassium 4.7 (3.4-5.0) mmol/L Chloride 99 (98-107) mmol/L Carbon Dioxide 30 (22-30) mmol/L Anion Gap 8 (4-12) mmol/L BUN 49 H (7-17) mg/dL Creatinine 1.74 H (0.7-1.0) mg/dL Estim Creat Clear Calc 16 ml/min Estimated GFR 28 L (59 - ) Glucose 203 H (65-110) mg/dL POC Capillary Glucose 179 H (65-105) mg/dl Calcium 9.2 (8.4-10.2) mg/dL Total Bilirubin (0.2-1.3) mg/dL AST (14-36) U/L ALT (6-35) U/L Alkaline Phosphatase (38-126) U/L Troponin I 0.127 H* D (0.000-0.034) ng/mL NT-Pro-B Natriuret Pep (19.9-100) pg/mL Total Protein (6.3-8.2) g/dL Albumin (3.5-5.1) g/dL Lipase (23-300) U/L Urine Color (Yellow) Urine Appearance (Clear) Urine pH (5.0-9.0) Ur Specific [place] (1.001-1.035) Urine Protein (Negative) mg/dL Urine Glucose (UA) (Negative) mg/dL Urine Ketones (Negative) mg/dL Ur Blood (Man) (Negative) Urine Nitrate (Negative) Urine Bilirubin (Negative) Urine Urobilinogen (<2.0) mg/dL Leukocyte Esterase Rfl (Negative) TEE/UL Urine RBC (0-2) /hpf Urine WBC (0-3) /hpf Ur Squamous Epith Cells (Few) /hpf Urine Bacteria /hpf Urine Casts Hyaline Casts (None) /lpf Influenza A (RT-PCR) (Negative) Influenza B (RT-PCR) (Negative) RSV (RT-PCR) (Negative) SARS-CoV-2 RNA (RT-PCR) (Negative) <Brigette Morales PA-C - Last Filed: 06/08/25 09:24> Lab Results 06/07/25 06/07/25 06/07/25 Range/Units 19:05 19:13 19:59 WBC 8.0 (4.5-10.0) K/mm3 RBC 5.03 (4.2-5.4) M/mm3 Hgb 15.2 H (12.0-15.0) g/dL Hct 48.9 H (37.0-47.0) % MCV 97.2 (80-100) fl MCH 30.2 (26-34) pg MCHC 31.1 L (32-36) g/dl RDW 14.9 H (11.5-14.5) % Plt Count 106 L (150-375) k/mm3 MPV 10.1 (7.4-10.4) fl Immature Gran % (Auto) 0.9 H (0-0.5) % Neut % (Auto) 83.5 H (45.5-73.1) % Lymph % (Auto) 9.9 L (18.3-44.2) % [place] % (Auto) 5.2 (2.6-8.5) % Eos % (Auto) 0.1 (0-4.4) % Baso % (Auto) 0.4 (0.2-1.2) % Lymph # (Auto) 0.79 L (0.9-3.2) K/mm3 [place] # (Auto) 0.4 (0.1-0.6) K/mm3 Eos # (Auto) 0.0 (0-0.3) K/mm3 Baso # (Auto) 0.0 (0.0-0.1) K/mm3 Abs Immat Gran (auto) 0.07 H (0.00-0.031) K/mm3 Absolute Neuts (auto) 6.7 (1.3-6.7) K/mm3 Absolute Nucleated RBC 0.020 H (0.0-0.012) K/mm3 Nucleated RBC % 0.2 (0.0-0.2) % % Immature Plt Fraction 2.8 (0.9-11.2) % PT 18.0 H (11.1-14.7) Seconds INR 1.5 APTT 36.9 H (22.3-36.8) Seconds Sodium 138 (137-145) mmol/L Potassium 5.7 H (3.4-5.0) mmol/L Chloride 100 (98-107) mmol/L Carbon Dioxide 29 (22-30) mmol/L Anion Gap 9 (4-12) mmol/L BUN 50 H (7-17) mg/dL Creatinine 1.63 H (0.7-1.0) mg/dL Estim Creat Clear Calc 17 ml/min Estimated GFR 30 L (59 - ) Glucose 274 H (65-110) mg/dL POC Capillary Glucose (65-105) mg/dl Calcium 9.2 (8.4-10.2) mg/dL Total Bilirubin 1.3 (0.2-1.3) mg/dL AST 299 H (14-36) U/L ALT 187 H (6-35) U/L Alkaline Phosphatase 146 H (38-126) U/L Troponin I 0.066 H* (0.000-0.034) ng/mL NT-Pro-B Natriuret Pep 9970 H (19.9-100) pg/mL Total Protein 7.4 (6.3-8.2) g/dL Albumin 4.1 (3.5-5.1) g/dL Lipase 438 H (23-300) U/L Urine Color Brown H (Yellow) Urine Appearance Turbid H (Clear) Urine pH 5.0 (5.0-9.0) Ur Specific [place] 1.023 (1.001-1.035) Urine Protein 2+ H (Negative) mg/dL Urine Glucose (UA) Negative (Negative) mg/dL Urine Ketones Negative (Negative) mg/dL Ur Blood (Man) 2+ H (Negative) Urine Nitrate Positive H (Negative) Urine Bilirubin 2+ H (Negative) Urine Urobilinogen 1.0 (<2.0) mg/dL Leukocyte Esterase Rfl 2+ H (Negative) TEE/UL Urine RBC >100 H (0-2) /hpf Urine WBC 11-20 H (0-3) /hpf Ur Squamous Epith Cells Many H (Few) /hpf Urine Bacteria Rare /hpf Urine Casts >20 Hyaline Casts Present (None) /lpf Influenza A (RT-PCR) Negative (Negative) Influenza B (RT-PCR) Negative (Negative) RSV (RT-PCR) Negative (Negative) SARS-CoV-2 RNA (RT-PCR) Negative (Negative) 06/07/25 06/08/25 Range/Units 21:55 00:28 WBC (4.5-10.0) K/mm3 RBC (4.2-5.4) M/mm3 Hgb (12.0-15.0) g/dL Hct (37.0-47.0) % MCV (80-100) fl MCH (26-34) pg MCHC (32-36) g/dl RDW (11.5-14.5) % Plt Count (150-375) k/mm3 MPV (7.4-10.4) fl Immature Gran % (Auto) (0-0.5) % Neut % (Auto) (45.5-73.1) % Lymph % (Auto) (18.3-44.2) % [place] % (Auto) (2.6-8.5) % Eos % (Auto) (0-4.4) % Baso % (Auto) (0.2-1.2) % Lymph # (Auto) (0.9-3.2) K/mm3 [place] # (Auto) (0.1-0.6) K/mm3 Eos # (Auto) (0-0.3) K/mm3 Baso # (Auto) (0.0-0.1) K/mm3 Abs Immat Gran (auto) (0.00-0.031) K/mm3 Absolute Neuts (auto) (1.3-6.7) K/mm3 Absolute Nucleated RBC (0.0-0.012) K/mm3 Nucleated RBC % (0.0-0.2) % % Immature Plt Fraction (0.9-11.2) % PT (11.1-14.7) Seconds INR APTT (22.3-36.8) Seconds Sodium 137 (137-145) mmol/L Potassium 4.7 (3.4-5.0) mmol/L Chloride 99 (98-107) mmol/L Carbon Dioxide 30 (22-30) mmol/L Anion Gap 8 (4-12) mmol/L BUN 49 H (7-17) mg/dL Creatinine 1.74 H (0.7-1.0) mg/dL Estim Creat Clear Calc 16 ml/min Estimated GFR 28 L (59 - ) Glucose 203 H (65-110) mg/dL POC Capillary Glucose 179 H (65-105) mg/dl Calcium 9.2 (8.4-10.2) mg/dL Total Bilirubin (0.2-1.3) mg/dL AST (14-36) U/L ALT (6-35) U/L Alkaline Phosphatase (38-126) U/L Troponin I 0.127 H* D (0.000-0.034) ng/mL NT-Pro-B Natriuret Pep (19.9-100) pg/mL Total Protein (6.3-8.2) g/dL Albumin (3.5-5.1) g/dL Lipase (23-300) U/L Urine Color (Yellow) Urine Appearance (Clear) Urine pH (5.0-9.0) Ur Specific [place] (1.001-1.035) Urine Protein (Negative) mg/dL Urine Glucose (UA) (Negative) mg/dL Urine Ketones (Negative) mg/dL Ur Blood (Man) (Negative) Urine Nitrate (Negative) Urine Bilirubin (Negative) Urine Urobilinogen (<2.0) mg/dL Leukocyte Esterase Rfl (Negative) TEE/UL Urine RBC (0-2) /hpf Urine WBC (0-3) /hpf Ur Squamous Epith Cells (Few) /hpf Urine Bacteria /hpf Urine Casts Hyaline Casts (None) /lpf Influenza A (RT-PCR) (Negative) Influenza B (RT-PCR) (Negative) RSV (RT-PCR) (Negative) SARS-CoV-2 RNA (RT-PCR) (Negative) <Soniya Ibarra PA-C - Last Filed: 06/08/25 00:41> Lab Results 06/07/25 06/07/25 06/07/25 Range/Units 19:05 19:13 19:59 WBC 8.0 (4.5-10.0) K/mm3 RBC 5.03 (4.2-5.4) M/mm3 Hgb 15.2 H (12.0-15.0) g/dL Hct 48.9 H (37.0-47.0) % MCV 97.2 (80-100) fl MCH 30.2 (26-34) pg MCHC 31.1 L (32-36) g/dl RDW 14.9 H (11.5-14.5) % Plt Count 106 L (150-375) k/mm3 MPV 10.1 (7.4-10.4) fl Immature Gran % (Auto) 0.9 H (0-0.5) % Neut % (Auto) 83.5 H (45.5-73.1) % Lymph % (Auto) 9.9 L (18.3-44.2) % [place] % (Auto) 5.2 (2.6-8.5) % Eos % (Auto) 0.1 (0-4.4) % Baso % (Auto) 0.4 (0.2-1.2) % Lymph # (Auto) 0.79 L (0.9-3.2) K/mm3 [place] # (Auto) 0.4 (0.1-0.6) K/mm3 Eos # (Auto) 0.0 (0-0.3) K/mm3 Baso # (Auto) 0.0 (0.0-0.1) K/mm3 Abs Immat Gran (auto) 0.07 H (0.00-0.031) K/mm3 Absolute Neuts (auto) 6.7 (1.3-6.7) K/mm3 Absolute Nucleated RBC 0.020 H (0.0-0.012) K/mm3 Nucleated RBC % 0.2 (0.0-0.2) % % Immature Plt Fraction 2.8 (0.9-11.2) % PT 18.0 H (11.1-14.7) Seconds INR 1.5 APTT 36.9 H (22.3-36.8) Seconds Sodium 138 (137-145) mmol/L Potassium 5.7 H (3.4-5.0) mmol/L Chloride 100 (98-107) mmol/L Carbon Dioxide 29 (22-30) mmol/L Anion Gap 9 (4-12) mmol/L BUN 50 H (7-17) mg/dL Creatinine 1.63 H (0.7-1.0) mg/dL Estim Creat Clear Calc 17 ml/min Estimated GFR 30 L (59 - ) Glucose 274 H (65-110) mg/dL POC Capillary Glucose (65-105) mg/dl Calcium 9.2 (8.4-10.2) mg/dL Total Bilirubin 1.3 (0.2-1.3) mg/dL AST 299 H (14-36) U/L ALT 187 H (6-35) U/L Alkaline Phosphatase 146 H (38-126) U/L Troponin I 0.066 H* (0.000-0.034) ng/mL NT-Pro-B Natriuret Pep 9970 H (19.9-100) pg/mL Total Protein 7.4 (6.3-8.2) g/dL Albumin 4.1 (3.5-5.1) g/dL Lipase 438 H (23-300) U/L Urine Color Brown H (Yellow) Urine Appearance Turbid H (Clear) Urine pH 5.0 (5.0-9.0) Ur Specific [place] 1.023 (1.001-1.035) Urine Protein 2+ H (Negative) mg/dL Urine Glucose (UA) Negative (Negative) mg/dL Urine Ketones Negative (Negative) mg/dL Ur Blood (Man) 2+ H (Negative) Urine Nitrate Positive H (Negative) Urine Bilirubin 2+ H (Negative) Urine Urobilinogen 1.0 (<2.0) mg/dL Leukocyte Esterase Rfl 2+ H (Negative) TEE/UL Urine RBC >100 H (0-2) /hpf Urine WBC 11-20 H (0-3) /hpf Ur Squamous Epith Cells Many H (Few) /hpf Urine Bacteria Rare /hpf Urine Casts >20 Hyaline Casts Present (None) /lpf Influenza A (RT-PCR) Negative (Negative) Influenza B (RT-PCR) Negative (Negative) RSV (RT-PCR) Negative (Negative) SARS-CoV-2 RNA (RT-PCR) Negative (Negative) 06/07/25 06/08/25 Range/Units 21:55 00:28 WBC (4.5-10.0) K/mm3 RBC (4.2-5.4) M/mm3 Hgb (12.0-15.0) g/dL Hct (37.0-47.0) % MCV (80-100) fl MCH (26-34) pg MCHC (32-36) g/dl RDW (11.5-14.5) % Plt Count (150-375) k/mm3 MPV (7.4-10.4) fl Immature Gran % (Auto) (0-0.5) % Neut % (Auto) (45.5-73.1) % Lymph % (Auto) (18.3-44.2) % [place] % (Auto) (2.6-8.5) % Eos % (Auto) (0-4.4) % Baso % (Auto) (0.2-1.2) % Lymph # (Auto) (0.9-3.2) K/mm3 [place] # (Auto) (0.1-0.6) K/mm3 Eos # (Auto) (0-0.3) K/mm3 Baso # (Auto) (0.0-0.1) K/mm3 Abs Immat Gran (auto) (0.00-0.031) K/mm3 Absolute Neuts (auto) (1.3-6.7) K/mm3 Absolute Nucleated RBC (0.0-0.012) K/mm3 Nucleated RBC % (0.0-0.2) % % Immature Plt Fraction (0.9-11.2) % PT (11.1-14.7) Seconds INR APTT (22.3-36.8) Seconds Sodium 137 (137-145) mmol/L Potassium 4.7 (3.4-5.0) mmol/L Chloride 99 (98-107) mmol/L Carbon Dioxide 30 (22-30) mmol/L Anion Gap 8 (4-12) mmol/L BUN 49 H (7-17) mg/dL Creatinine 1.74 H (0.7-1.0) mg/dL Estim Creat Clear Calc 16 ml/min Estimated GFR 28 L (59 - ) Glucose 203 H (65-110) mg/dL POC Capillary Glucose 179 H (65-105) mg/dl Calcium 9.2 (8.4-10.2) mg/dL Total Bilirubin (0.2-1.3) mg/dL AST (14-36) U/L ALT (6-35) U/L Alkaline Phosphatase (38-126) U/L Troponin I 0.127 H* D (0.000-0.034) ng/mL NT-Pro-B Natriuret Pep (19.9-100) pg/mL Total Protein (6.3-8.2) g/dL Albumin (3.5-5.1) g/dL Lipase (23-300) U/L Urine Color (Yellow) Urine Appearance (Clear) Urine pH (5.0-9.0) Ur Specific [place] (1.001-1.035) Urine Protein (Negative) mg/dL Urine Glucose (UA) (Negative) mg/dL Urine Ketones (Negative) mg/dL Ur Blood (Man) (Negative) Urine Nitrate (Negative) Urine Bilirubin (Negative) Urine Urobilinogen (<2.0) mg/dL Leukocyte Esterase Rfl (Negative) TEE/UL Urine RBC (0-2) /hpf Urine WBC (0-3) /hpf Ur Squamous Epith Cells (Few) /hpf Urine Bacteria /hpf Urine Casts Hyaline Casts (None) /lpf Influenza A (RT-PCR) (Negative) Influenza B (RT-PCR) (Negative) RSV (RT-PCR) (Negative) SARS-CoV-2 RNA (RT-PCR) (Negative) <Viridiana Horton MD - Last Filed: 06/11/25 02:26> Imaging Data Attestation: I personally reviewed and interpreted this imaging study as follows: < Soniya Ibarra PA-C - Last Filed: 06/08/25 00:41> Radiologist's impression: ITS Impressions Chest X-Ray 06/07/25 18:47 IMPRESSION: Cardiomegaly and pulmonary vascular congestion Chest/Abdomen/Pelvis CTA 06/07/25 21:12 IMPRESSION: Large pulmonary emboli in the main pulmonary arteries bilaterally extending into the segmental branches. There are right heart strain noted. No acute lung findings. CTA chest PE abdomen pel INDICATION:hypoxia, sob, tachycardia . COMPARISON: None. TECHNIQUE: Axial images of the abdomen and pelvis were obtained following infusion of 100 mL Isovue 370. Dose optimization technique was utilized. FINDINGS: The lung bases are clear. The liver parenchyma is unremarkable. No intrahepatic mass or ductal dilatation is evident. Gallbladder surgically absent. The pancreas and spleen are normal in appearance. The adrenal glands are symmetric in size. The kidneys demonstrate symmetric uptake and excretion of contrast. No cystic mass is evident. There is no solid mass. There is no hydronephrosis. Evaluation of the stomach and bowel loops are limited due to lack of oral contrast. There are no bowel obstruction or acute appendicitis. The bladder and rectum are normal. No free intraperitoneal fluid or air is evident. There is no significant retroperitoneal lymphadenopathy. The aorta, visceral vessels and renal arteries demonstrate normal caliber and patency. The lower thoracic and lumbar vertebrae are in normal alignment. IMPRESSION: No acute abnormality is noted in the abdomen and pelvis. All CT scans at this facility are performed using low dose modulation techniques as appropriate to perform exam including the following: automated exposure control; use of iterative reconstruction technique; adjustment of the mA and/or kV according to patient size (this includes techniques or standardized protocols for targeted exams where dose is matched to indication/reason for exam). <RONA Del Real Last Filed: 06/08/25 00:41> ECG Data EKG #1: Attestation: I personally reviewed and interpreted this ECG as follows: <RONA Del Real Last Filed: 06/08/25 00:41> ECG completion date: 06/07/25 <RONA Del Real Last Filed: 06/08/25 00:41> ECG completion time: 18:15 <RONA Del Real Last Filed: 06/08/25 00:41> EKG Interpretation: tachycardia (114), atrial fibrillation, non-specific ST changes and RBBB <RONA Del Real Last Filed: 06/08/25 00:41> Critical Care Time Critical Care Time Critical Care Time: Yes <RONA Del Real Last Filed: 06/08/25 00:41> Total Critical Care Time: 45 <RONA Del Real Last Filed: 06/08/25 00:41> Discharge Plan Discharge Clinical Impression: Bilateral pulmonary embolism, Acute hypoxic respiratory failure, Elevated troponin, Hyperkalemia, JUANPABLO (acute kidney injury), Atrial fibrillation with rapid ventricular response, Transaminitis, UTI (urinary tract infection) <RONA Villegas Last Filed: 06/08/25 09:24> Patient Disposition: Acute Care Hospital <RONA Villegas Last Filed: 06/08/25 09:24> Condition: Serious <RONA Villegas Last Filed: 06/08/25 09:24> Patient Language: Finnish <RONA Villegas Last Filed: 06/08/25 09:24> Prescriptions: No Action cholecalciferol (vitamin D3) 25 mcg (1,000 unit) capsule 25 mcg PO DAILY metoprolol succinate 25 mg tablet extended release 24 hr 25 mg PO QAM metformin 500 mg tablet 500 mg PO BID Qty: 180 2RF Xarelto 20 mg tablet 20 mg PO DAILY Qty: 90 1RF Rx Instructions: must administer with evening meal lisinopril 40 mg tablet 40 mg PO DAILY Qty: 90 2RF amlodipine 5 mg tablet See Rx Instructions .ROUTE .COMPLEX Qty: 90 3RF Dose Instruction: TAKE 1 TABLET BY MOUTH DAILY Rx Instructions: TAKE 1 TABLET BY MOUTH DAILY simvastatin 20 mg tablet 20 mg PO DAILY Qty: 90 3RF <Brigette Morales PA-C - Last Filed: 06/08/25 09:24> Follow-up/Referrals: Sarkis,MD Wilma [Primary Care Provider, Family Practice] <Brigette Morales PA-C - Last Filed: 06/08/25 09:24>
--- OUTSIDE RECORDS SUMMARY | 2025-06-07 18:39 | XMS_ITS | Encounter Summary ---
Author Organization [facility] Healthcare Address [address] [place] [address] Care Team Providers Care Video Machines Mechanic Name Role Phone Wilma Dockery MD Primary Care Provider [phone] Encounter Details Date Type Department Care Team ([facility] Contact Info) Description 03/26/2017 Orders Only [facility] Health Information Management [address] [place] [id number] Scanning, Provider Social History Tobacco Use Types Packs/Day Years Used Date Smoking Tobacco: Former Smokeless Tobacco: Never Alcohol Use Standard Drinks/Week Comments No 0 (1 standard drink = 0.6 oz pur e alcohol) Comments Unknown Sex and Gender Information Value Date Recorded Sex Assigned at Not on file 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
--- OUTSIDE RECORDS SUMMARY | 2025-06-07 18:39 | XMS_ITS | Clinical Summary ---
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
[2025-06-07 19:13] LABS: Hematocrit 48.9 % (37.0-47.0); Hemoglobin 15.2 g/dL (12.0-15.0); Immature Granulocyte Percent A 0.9 % (0-0.5); Immature Platelet Fraction Pct 2.8 % (0.9-11.2); Lymphocytes Absolute Auto 0.79 K/mm3 (0.9-3.2); Mean Corpuscular HGB Conc 31.1 g/dl (32-36); Mean Corpuscular Hemoglobin 30.2 pg (26-34); Mean Corpuscular Volume 97.2 fl (80-100); Nucleated Red Blood Cells Absolute Auto 0.020 K/mm3 (0.0-0.012); Nucleated Red Blood Cells Perc 0.2 % (0.0-0.2); Platelet Count Result 106 k/mm3 (150-375); Red Blood Count 5.03 M/mm3 (4.2-5.4); White Blood Count 8.0 K/mm3 (4.5-10.0)
[2025-06-07] MEDS: METOPROLOL SUCCINATE EXT REL 25 MG TABCR PO (19:19)
[2025-06-07 19:22] LABS: Alanine Aminotransferase 187 U/L (6-35); Albumin Level 4.1 g/dL (3.5-5.1); Alkaline Phosphatase 146 U/L (38-126); Anion Gap 9 mmol/L (4-12); Aspartate Amino Transferase 299 U/L (14-36); Bilirubin,Total 1.3 mg/dL (0.2-1.3); Blood Urea Nitrogen 50 mg/dL (7-17); Calcium 9.2 mg/dL (8.4-10.2); Carbon Dioxide 29 mmol/L (22-30); Chloride 100 mmol/L (98-107); Estimated CRCL calculation 17 ml/min; Estimated Glomerular Filt Rate 30; Glucose 274 mg/dL (65-110); Lipase 438 U/L (23-300); Potassium 5.7 mmol/L (3.4-5.0); Sodium 138 mmol/L (137-145); Total Protein 7.4 g/dL (6.3-8.2)
[2025-06-07 19:27] LABS: INR 1.5; Prothrombin Time 18.0 Seconds (11.1-14.7)
[2025-06-07 19:29] LABS: Partial Thromboplastin Time 36.9 Seconds (22.3-36.8)
[2025-06-07 19:40] LABS: Troponin I 0.066 ng/mL (0.000-0.034)
[2025-06-07 19:55] LABS: NT Pro B Type Natriuretic Pept 9970 pg/mL (19.9-100)
[2025-06-07] MEDS: INSULIN HUMAN REGULAR (*BKC) 100 UNITS/ML 10 UNITS IV PUSH (20:01)
[2025-06-07] MEDS: CALCIUM GLUC 1,000 MG/NS 50 ML 1,000 MG/50 ML BAG 100 MG IVPB (20:03)
[2025-06-07] MEDS: DEXTROSE 50% 25 GM/50 ML SYRINGE IV PUSH (20:03)
[2025-06-07] MEDS: FUROSEMIDE INJ 40 MG/4 ML VIAL 20 MG IV PUSH (20:04)
[2025-06-07] MEDS: SODIUM ZIRCONIUM CYCLOSILICATE 10 GM POWD.PACK PO (20:04)
[2025-06-07 20:07] LABS: Influenza A QL RT-PCR Negative (Negative); Influenza B QL RT-PCR Negative (Negative); RSV RNA, RT-PCR Negative (Negative); SARS-CoV-2 RNA PCR Negative (Negative)
[2025-06-07] MEDS: METOPROLOL TARTRATE INJ 5 MG/5 ML VIAL IV PUSH (20:16)
[2025-06-07 20:17] LABS: Non Pathogenic Casts >20
[2025-06-07 20:19] LABS: Add Urine Microscopic? YES; Appearance Urine Turbid (Clear); Glucose Urine UA Negative (Negative); Leukocyte Esterase Ur 2+ LEU/UL (Negative); Nitrate Urine Positive (Negative); Specific Grav Ur 1.023 (1.001-1.035)
[2025-06-07] MEDS: HEPARIN SOD/D5W 100 UNITS/ML 25,000 UNITS/250 ML BAG 9 UNITS IV CONT (21:57)
--- NOTE | 2025-06-07 22:07 | ECG_ITS ---
Test Date: 2025-06-07 22:15:15 Measurements Intervals [place] Rate: 117 P: 0 [place]: 0 QRS: 167 QRSD: 122 T: -65 QT: 376 QTc: 527 Interpretive Statements ATRIAL FLUTTER/TACHYCARDIA WITH RAPID VENTRICULAR RESPONSE RIGHT BUNDLE BRANCH BLOCK ST DEVIATION AND T-WAVE ABNORMALITY, CONSIDER ISCHEMIA Electronically Signed On 06-07-2025 22:36:54 ULTRASONIC HAND SOLDERER by Josh Wright D.O
[2025-06-07 22:11] LABS: Anion Gap 8 mmol/L (4-12); Blood Urea Nitrogen 49 mg/dL (7-17); Calcium 9.2 mg/dL (8.4-10.2); Carbon Dioxide 30 mmol/L (22-30); Chloride 99 mmol/L (98-107); Estimated CRCL calculation 16 ml/min; Estimated Glomerular Filt Rate 28; Glucose 203 mg/dL (65-110); Potassium 4.7 mmol/L (3.4-5.0); Sodium 137 mmol/L (137-145)
[2025-06-07 22:25] LABS: Troponin I 0.127 ng/mL (0.000-0.034)
[2025-06-07] MEDS: cefTRIAXone 1 GM in SODIUM CHLORIDE 0.9% IV 50 ML 100 ML IVPB (23:16)
--- NOTE | 2025-06-07 23:39 | PC.NURSE ---
Hand off report to Luna Coley
[2025-06-08] VITALS: PULSE 113; RESP 25
[2025-06-08 00:08] VITALS: BP 111/92; PULSE 119; RESP 26; O2SAT 99
[2025-06-08 00:15] VITALS: PULSE 132; RESP 23
[2025-06-08 00:30] VITALS: BP 129/102; PULSE 116; RESP 23
[2025-06-08 00:31] VITALS: PULSE 114; RESP 20
[2025-06-08 00:45] VITALS: PULSE 131; RESP 27
== END 2025-06-08 01:23 | disposition short-term general hospital (02) ==
PROVIDERS: Physician Assistant; Emergency Provider Physician Assistant; PCP Family Medicine
DX: I26.99 Other pulmonary embolism without acute cor pulmonale (principal); J96.01 Acute respiratory failure with hypoxia; N17.9 Acute kidney failure, unspecified; N39.0 Urinary tract infection, site not specified; I48.91 Unspecified atrial fibrillation; E87.5 Hyperkalemia; R79.89 Other specified abnormal findings of blood chemistry; R74.01 Elevation of levels of liver transaminase levels; Z20.822 Contact with and (suspected) exposure to COVID-19; I25.10 Atherosclerotic heart disease of native coronary artery without angina pectoris; I10 Essential (primary) hypertension; E78.00 Pure hypercholesterolemia, unspecified; E11.9 Type 2 diabetes mellitus without complications; E55.9 Vitamin D deficiency, unspecified; Z86.73 Personal history of transient ischemic attack (TIA), and cerebral infarction without residual deficits; Z87.891 Personal history of nicotine dependence; Z90.711 Acquired absence of uterus with remaining cervical stump; Z98.49 Cataract extraction status, unspecified eye; Z79.01 Long term (current) use of anticoagulants; Z79.899 Other long term (current) drug therapy; Z79.84 Long term (current) use of oral hypoglycemic drugs; I45.10 Unspecified right bundle-branch block; R94.31 Abnormal electrocardiogram [ECG] [EKG]; I51.7 Cardiomegaly
CPT/HCPCS: 36415; 71045; 71275; 74177; 80048; 80053; 81001; 82948; 83690; 83880; 84484; 85025; 85055; 85610; 85730; 87040; 87086; 87637; 93005; 96365; 96367; 96375; 99291; A9270; J0612; J0616; J0696; J1644; J1815; J1938; Q9967